=== PATIENT | female | born 1940 | race Caucasian/White ===

== ENCOUNTER 2022-07-26 18:14 | Emergency (ER) | payer MEDICARE ==
[2022-07-26 19:28] LABS: #Basophils 0.1 10x3/uL (0.0-0.2); #Eosinphils 0.1 10x3/uL (0.0-0.5); #Monocytes 0.5 10x3/uL (0.0-1.1); #Neutrophils 6.2 10x3/uL (1.5-8.4); %Basophils 0.6 % (0.0-2.0); %Eosinophils 1.2 % (0.0-6.0); %Lymphocytes 25.7 % (18.0-47.0); %Monocytes 5.8 % (0.0-10.0); %Neutrophils 66.5 % (40.0-75.0); Hemoglobin 13.7 g/dL (12.0-15.5); Mean Corpuscular HGB CONC 32.6 g/dL (32.0-36.0); Mean Corpuscular Hemoglobin 28.8 pg (27.0-33.0); Mean Corpuscular Volume 88.4 fl (81.6-98.3); Mean Platelet Volume 11.6 fl (7.4-10.4); Platelet Count 337 10x3/uL (150-450); Red Blood Cell (RBC) Count 4.75 10x6/uL (3.90-5.03); White Blood Cell (WBC) Count 9.4 10x3/uL (3.5-10.5)
[2022-07-26 19:41] LABS: ALT (SGPT) 6 U/L (8-55); AST (SGOT) 21 U/L (5-34); Albumin 3.8 g/dL (3.4-4.8); Alkaline Phosphatase 39 U/L (40-110); Anion Gap 15 mmol/L (10-20); BUN (Urea Nitrogen) 11 mg/dL (9.8-20.1); Bilirubin, Total 1.1 mg/dL (0.2-1.2); Calc. Creatinine Clearance 0 mL/min (70-130); Calcium 8.8 mg/dL (7.8-10.44); Carbon Dioxide 19 mmol/L (23-31); Chloride 110 mmol/L (98-107); Estimated GFR 86; Globulin 2.4 g/dL (2.4-3.5); Glucose 94 mg/dL (83-110); Lipase 19 U/L (8-78); Potassium 4.1 mmol/L (3.5-5.1); Protein, Total 6.2 g/dL (5.8-8.1); Sodium 140 mmol/L (136-145)
[2022-07-26 21:47] LABS: Bilirubin Neg (Negative); Blood, Urine 10 (Negative); Clarity Clear (Clear); Glucose, Urine (Dipstick) Normal (Negative); Ketone, Urine Negative (Negative); Leukocyte 500 (Negative); Nitrite Negative (Negative); Protein, Urine (Dipstick) Negative (Neg-Trace); Specific Gravity, Urine 1.015 (1.005-1.030); Urobilinogen Normal mg/dL (Less than 2)
[2022-07-26 22:09] LABS: RBC/HPF 0-3 HPF (0-3)
[2022-07-26 22:10] LABS: Bacteria/HPF 1+ HPF (None Seen); Squamous Epithelial 0-3 HPF (0-3)
[2022-07-26] MEDS ORDERED: cefTRIAXone (ROCEPHIN) 1 GM VIAL ONE (22:23)
== END 2022-07-26 22:39 | disposition home or self-care (01) ==
LOC: CSHERS 18:14
DX: N39.0 Urinary tract infection, site not specified (principal)
CPT/HCPCS: 36415; 70450; 71045; 80053; 81003; 81015; 83690; 83735; 83880; 84484; 85025; 93005; 96365; J0696